=== PATIENT | male | born 1985 | race African-American/Black ===

== ENCOUNTER 2017-11-24 09:44 | Emergency (ER) | payer OTHER ==
[~2017-11-24] VITALS: Ht 188 cm; Wt 149.7 kg
--- NOTE | 2017-11-24 10:16 | PHYS DOC ---
Past History Past Medical History: No Pertinent History, Hypertension Past Surgical History: No Surgical History Smoking: Non-smoker Alcohol Use: None Drug Use: None Adult General Chief Complaint Chief Complaint: EYE PROBLEMS HPI HPI 32 years old male patient complaining of left eyelid edema and itching after he had insect bites during the night doesn't get better with applying cold compress and taking [id number] Benadryl. Patient denies change of vision, eye drainage, fever and chills, pain in his eye, history of MRSA. Review of Systems Review of Systems Constitutional: Denies fever or chills [] Eyes: Denies change in visual acuity, redness, or eye pain [] HENT: Denies nasal congestion or sore throat [] Respiratory: Denies cough or shortness of breath [] Cardiovascular: No additional information not addressed in HPI [] GI: Denies abdominal pain, nausea, vomiting, bloody stools or diarrhea [] : Denies dysuria or hematuria [] Musculoskeletal: Denies back pain or joint pain [] Integument: Denies rash, reports skin edema] Neurologic: Denies headache, focal weakness or sensory changes [] Endocrine: Denies polyuria or polydipsia [] All other systems were reviewed and found to be within normal limits, except as documented in this note. Allergies Allergies Allergies Coded Allergies Type Severity Reaction Last Updated Verified No Known Drug Allergies 11/24/17 No Physical Exam Physical Exam Constitutional: Well developed, well nourished, mild distress, non-toxic appearance. [] HENT: Normocephalic, atraumatic Eyes: Left upper eyelid with moderate edema and insect bite without sign of infection, PERRLA, EOMI, conjunctiva normal, no discharge. [] Neck: Normal range of motion, no tenderness, supple, no stridor. [] Cardiovascular:Heart rate regular rhythm, no murmur [] Lungs & Thorax: Bilateral breath sounds clear to auscultation [] Neurologic: Alert and oriented X 3, normal motor function, normal sensory function, no focal deficits noted. [] Psychologic: Affect normal, judgement normal, mood normal. [] Current Patient Data Vital Signs Vital Signs Date Time Temp Pulse Resp B/P (MAP) Pulse Ox O2 Delivery O2 Flow Rate FiO2 11/24/17 09:50 98.0 56 22 97 Room Air EKG EKG [] Radiology/Procedures Radiology/Procedures [] Course & Med Decision Making Course & Med Decision Making discharge: I've spoken with the patient and/or caregivers. I've explained the patient's condition, diagnosis and treatment plan based on information available to me at this time. I've answered the patient's and/or caregivers questions and addressed any concerns. The patient and/or caregivers have a good understanding the patient's diagnosis, condition and treatment plan as can be expected at this point. Vital signs have been stabilized. The patient's condition is stable for discharge from the emergency department. The patient will pursue further outpatient evaluation with her primary care provider or other designated consulting physician as outlined in the discharge instructions. Patient and/or caregivers are agreeable to this plan of care and follow-up instructions have been explained in detail. The patient and/or caregivers have received these instructions in written format and expressed understanding of these discharge instructions. The patient and her caregivers are aware that if any significant change in condition or worsening of symptoms should prompt him to immediately return to this of the closest emergency department. If an emergent department is not readily available I would encourage him to call 911. Dragon Disclaimer Dragon Disclaimer This electronic medical record was generated, in whole or in part, using a voice recognition dictation system. Departure Departure: Impression: Primary Impression: Allergy, insect bite Disposition: HOME, SELF-CARE (At 1013) Condition: STABLE Referrals: PCP,NO (PCP) Patient Instructions: Insect Sting Allergy Additional Instructions: Apply warm compresses on left eye Follow-up with your primary care physician as needed Take [id number] Benadryl for itching and edema EDINSON SANDOVAL MD Nov 24, 2017 10:16
[2017-11-24 11:16] VITALS: BP 142/80
== END 2017-11-24 10:30 | disposition home or self-care (01) ==
LOC: ER 09:44
DX: S00.262A Insect bite (nonvenomous) of left eyelid and periocular area, initial encounter (principal); H02.844 Edema of left upper eyelid; I10 Essential (primary) hypertension; W57.XXXA Bitten or stung by nonvenomous insect and other nonvenomous arthropods, initial encounter; Y93.89 Activity, other specified; Y99.8 Other external cause status; Y92.89 Other specified places as the place of occurrence of the external cause
CPT/HCPCS: 99281

== ENCOUNTER 2020-05-09 00:55 | Emergency (ER) | payer OTHER ==
[~2020-05-09] VITALS: Ht 188 cm; Wt 150.4 kg
[2020-05-09] MEDS ORDERED: CONTRAST GIVEN. MC PRN (01:15)
[2020-05-09 01:29] LABS: BASO # 0.1 x10^3/uL (0.0-0.2); BASO % 1 % (0-3); EOS # 0.2 x10^3/uL (0.0-0.7); EOS % 4 % (0-3); HEMATOCRIT 45.9 % (39.0-53.0); HEMOGLOBIN 15.2 g/dL (13.0-17.5); LYMPH # 2.2 x10^3/uL (1.0-4.8); LYMPH % 37 % (24-48); MEAN CORPUSCULAR HEMOGLOBIN 29 pg (25-35); MEAN CORPUSCULAR HGB CONC 33 g/dL (31-37); MEAN CORPUSCULAR VOLUME 89 fL (79-100); MONO # 0.6 x10^3/uL (0.0-1.1); MONO % 10 % (0-9); NEUT # 2.8 x10^3uL (1.8-7.7); NEUT % 48 % (31-73); PLATELET COUNT 213 x10^3/uL (140-400); RED BLOOD COUNT 5.17 x10^6/uL (4.30-5.70); RED CELL DISTRIBUTION WIDTH 15.4 % (11.5-14.5); WHITE BLOOD COUNT 5.8 x10^3/uL (4.0-11.0)
[2020-05-09] MEDS ORDERED: IOHEXOL 300 MG/ML 75 ML VIAL. IV ONE (01:30)
[2020-05-09 01:37] LABS: CALCIUM 8.9 mg/dL (8.5-10.1); CREATININE 1.5 mg/dL (0.7-1.3); GFR 65.2; POTASSIUM 3.2 mmol/L (3.5-5.1)
[2020-05-09 01:43] LABS: ALBUMIN 3.7 g/dL (3.4-5.0); MAGNESIUM 2.1 mg/dL (1.8-2.4); TOTAL BILIRUBIN 0.7 mg/dL (0.2-1.0); TOTAL PROTEIN 7.3 g/dL (6.4-8.2)
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
[2020-05-09] MEDS: KETOROLAC 15 MG/ML VIAL. IVP ONE (02:16)
[2020-05-09] MEDS: IV NORMAL SALINE 1,000ML 1,000 ML IV ONE (02:16)
[2020-05-09] MEDS: ONDANSETRON PF 4 MG/2 ML VIAL. IVP ONE (02:16)
[2020-05-09] MEDS: LIDOCAINE 2%/EPI 1:100,000 20 ML VIAL. IJ ONE (02:17)
[2020-05-09] MEDS: NEOMY/BACITR/POLYMYXIN OINT PACKET. TP ONE (02:17)
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
[2020-05-09 02:55] VITALS: BP 133/98
[2020-05-09] MEDS ORDERED: OXYC-325 PO (02:56)
[2020-05-09] MEDS: oxyCODONE/APAP 5/325 1 TAB TABLET PO ONE (03:00)
[2020-05-09] MEDS: POTASSIUM CHLORIDE 20 MEQ TABLET.ER. PO ONE (03:01)
[2020-05-09 03:10] LABS: BILIRUBIN,URINE NEG (NEG); CLARITY,URINE CLEAR; COLOR,URINE YELLOW; GLUCOSE,URINE NEG (NEG); NITRITE,URINE NEG (NEG); WBC,URINE OCC /HPF (0-4)
[2020-05-09 03:12] LABS: BACTERIA,URINE 0 /HPF (0-FEW); SQUAMOUS EPITHELIAL CELL,UR FEW /LPF
[2020-05-09 03:22] LABS: BARBITURATES NEG (NEG); BENZODIAZEPINES NEG (NEG); CANNABINOIDS POS (NEG); COCAINE NEG (NEG); METHADONE NEG (NEG); OPIATES NEG (NEG); PHENCYCLIDINE NEG (NEG)
[2020-05-09 03:23] LABS: AMPHETAMINE/METHAMPHETAMINE NEG (NEG)
== END 2020-05-09 03:03 | disposition home or self-care (01) ==
LOC: ER 00:55
DX: S01.112A Laceration without foreign body of left eyelid and periocular area, initial encounter (principal); S60.221A Contusion of right hand, initial encounter; S20.212A Contusion of left front wall of thorax, initial encounter; E87.6 Hypokalemia; R51.9 Headache, unspecified; M54.2 Cervicalgia; I10 Essential (primary) hypertension; Y08.89XA Assault by other specified means, initial encounter; Y93.89 Activity, other specified; Y92.89 Other specified places as the place of occurrence of the external cause; Y99.8 Other external cause status
CPT/HCPCS: 12013; 36415; 70450; 71250; 72125; 73090; 73130; 74176; 80053; 80307; 81001; 83690; 83735; 85025; 85610; 85730; 96361; 96374; 96375; 99285; G0480; J1885; J2405; J7030